=== PATIENT | male | born 1980 | race Caucasian/White ===

== ENCOUNTER 2017-08-19 07:50 | Emergency (ER) | payer SELFPAY ==
[~2017-08-19] VITALS: Ht 188 cm; Wt 129.3 kg
[2017-08-19 07:59] VITALS: Ht 188 cm; Wt 129.3 kg
[2017-08-19 12:05] VITALS: BP 111/75
== END 2017-08-19 12:05 | disposition home or self-care (01) ==
LOC: ED 07:50
DX: R05 Cough (principal)
CPT/HCPCS: 87804; J7613; J7644